=== PATIENT | female | born 1985 | race Caucasian/White ===

== ENCOUNTER 2018-01-01 05:40 | Emergency (ER) | payer OTHER ==
[~2018-01-01] VITALS: Ht 165.1 cm; Wt 57.6 kg
[2018-01-01 05:43] VITALS: TEMP 36.4; Ht 165.1 cm; Wt 57.6 kg
[2018-01-01] MEDS ORDERED: SERT50TA PO (06:17)
[2018-01-01] MEDS ORDERED: LIDO4CRE10 TOP (06:24)
[2018-01-01] MEDS ORDERED: AMOX875T PO (06:24)
--- NOTE | 2018-01-01 06:25 | EMERGENCY ROOM VISIT NOTE ---
History First contact with patient: 05:48 Chief Complaint: RECTAL PAIN Stated Complaint: HEMORHOIDS, SWELLING History of Present Illness The patient is a 32 year old female who presents to the Emergency Room with complaints of rectal pain. The patient reports that she has a history of hemorrhoids since she had children several years ago. She reports that she had a GI illness with diarrhea for the past 1 week. She states that this flared up her hemorrhoids and she has been having itching and burning since then. She went to her PCP who gave her a topical steroid cream which she has been using without improvement. She states that she had a 3 hour trip in a car 2 days ago and has had increased pain since then. She has had difficulty sitting. She does report a history of thrombosed hemorrhoids. She rates her discomfort a 5/ 10. Her bowel movements have been normal, but she has been afraid to have a bowel movement for the past 2 days because of the pain. She denies any fevers. Review of Systems A complete 10 point review of systems was reviewed with the patient with pertinent positives and negatives as per history of present illness. All else were negative. Past Medical/Surgical History Medical Problems: (1) Hemorrhoids Social History Smoking Status: Never Smoker Alcohol Use: occasionally Housing Status: lives with family (from [facility]) Current/Historical Medications Scheduled Amoxicillin & Pot Clavulanate (Augmentin 875-125 mg), 1 TAB PO BID Sertraline (Zoloft), 50 MG PO DAILY Scheduled PRN Lidocaine (Anorectal) (Lidocaine), 1 APPLN TOP TID PRN for Pain Physical Exam Vital Signs Date Time Temp Pulse Resp B/P (MAP) Pulse Ox O2 Delivery O2 Flow Rate FiO2 01/01/18 06:30 76 20 114/70 98 01/01/18 05:43 36.4 81 20 112/68 98 Room Air Physical Exam VITALS: Vitals are noted on the nurse's note and reviewed by myself. Vital signs stable. GENERAL: This is a 32-year-old female, in no acute distress, nondiaphoretic, well-developed well-nourished. ABDOMEN: Soft, nontender. RECTAL: There is a large external hemorrhoid which is not thrombosed. There is induration to palpation of the left aspect of the rectum. There is no palpable fluctuance. There is no obvious erythema or edema. There is no drainage. NEURO: Patient was alert and oriented to person place and time. Medical Decision & Procedures Medications Administered Medications (Trade) Dose Ordered Sig/Joe Route Start Time Stop Time Status Last Admin Dose Admin Amoxicillin/ Clavulanate Potassium (Augmentin 875MG Home Pack) 1 homepack UD ONCE PO 01/01/18 06:30 01/01/18 06:31 DC 01/01/18 06:22 1 HOMEPACK Medical Decision Differential diagnosis includes external hemorrhoids, internal hemorrhoids, thrombosed hemorrhoids, perirectal abscess, among others. The patient was evaluated as above. Her physical exam is consistent with a perirectal cellulitis/early abscess. I do not feel she requires I&D or further workup at this time, however she will certainly need very close follow-up. Patient is returning home today and believes she can follow-up with her PCP within 48 hours for a recheck. She will be placed on Augmentin. She was advised to use Colace to help with bowel movements and to mixing picker tender a donut to help with pain during sitting. She was advised to seek care at the closest emergency department for worsening swelling, fevers or other new/concerning symptoms. She verbalized understanding of my assessment and treatment plan and was discharged home in good condition. The patient's case was reviewed with Dr. Cartwright, ED attending physician, who agreed with my assessment and treatment plan. Medication Reconcilliation Current Medication List: was personally reviewed by me Blood Pressure Screening Patient's blood pressure: Normal blood pressure Impression Primary Impression: Perirectal cellulitis Departure Information Dispostion Home / Self-Care Condition GOOD Prescriptions Lidocaine (Anorectal) (Lidocaine) 5 % Cre 1 APPLN TOP TID Y for Pain, #1 TUBE Prov: Elizabeth Cervantes PA-C 01/01/18 Amoxicillin & Pot Clavulanate (Augmentin 875-125 mg) 1 Tab Tab 1 TAB PO BID for 10 Days, #20 TAB Prov: Elizabeth Cervantes PA-C 01/01/18 Referrals No Doctor, Assigned (PCP) Patient Instructions My [facility] Additional Instructions You were prescribed Augmentin to be taken twice daily as prescribed. This is an antibiotic. All antibiotics have the potential to cause diarrhea. Stop this medication and contact a medical provider if you were to develop any significant adverse side effects including: wheezing, shortness of breath, passing out, vomiting, or a diffuse rash. Always take antibiotics as directed and COMPLETE the ENTIRE course regardless of the improvement of your symptoms. For pain control, you can use the following [id number] medicines (if >12 yo): - Regular strength (325mg/tab) Tylenol (acetaminophen) 2 tabs every 4-6 hours as needed. Do not exceed 12 tablets in a 24 hour period. Avoid taking more than 4 grams (4000 mg) of Tylenol per day. This includes any other sources of acetaminophen you may take on a regular basis. - Regular strength (200 mg/tab) Advil (ibuprofen) 1-2 tabs every 4-6 hours as needed. Do not exceed a dose of 3200 mg per day. You may apply the lidocaine to the painful area up to 3 times daily as needed for severe pain. You should take a stool softener such as Colace to help with bowel movements. You will need to follow-up with your primary care provider's office within 48 hours for a recheck. Contact them first thing this morning to schedule this rechecked. Return here or go to the closest ER with worsening pain/swelling, fevers, or any other new/concerning symptoms.
[2018-01-01 06:30] VITALS: BP 114/70; PULSE 76; O2SAT 98
[2018-01-01] MEDS ORDERED: AMOXICIL/CLAVU 875MG HOME PACK PO ONE (06:30)
== END 2018-01-01 06:31 | disposition home or self-care (01) ==
LOC: C.EDB 05:43
DX: K61.1 Rectal abscess (principal); Z79.899 Other long term (current) drug therapy